=== PATIENT | female | born 2000 | race Caucasian/White ===

== ENCOUNTER 2022-07-14 15:53 | Outpatient (CLI) | payer BC ==
[2022-07-14 17:17] LABS: BHCG - Serum Negative (NEGATIVE); Pregs Control Background? CLEAR/WHITE (CLR/WHITE); Pregs Control Bar Appear? YES (CONTROL BAR)
== END 2022-07-14 15:54 | disposition home or self-care (01) ==
LOC: CSHLAB 15:53
PROVIDERS: ATTEND Student in an Organized Health Care Education/Training Program
DX: Z01.812 Encounter for preprocedural laboratory examination (principal); J35.01 Chronic tonsillitis
CPT/HCPCS: 84703; 85014